=== PATIENT | female | born 1995 | race Caucasian/White ===

== ENCOUNTER 2016-06-25 12:10 | Outpatient (CLI) | payer BC ==
[2016-06-25 13:16] LABS: #Basophils 0.1 thou/uL (0.0-0.2); #Eosinphils 0.1 thou/uL (0.0-0.7); #Lymphocytes 2.1 thou/uL (1.20-3.40); #Monocytes 0.4 thou/uL (0.11-0.59); #Neutrophils 2.1 thou/uL (1.40-6.50); %Basophils 2.5 % (0.0-1.0); %Eosinophils 1.8 % (0.0-10.0); %Lymphocytes 43.5 % (28.0-48.0); %Monocytes 8.5 % (0.0-4.0); %Neutrophils 43.7 % (31.0-61.0); Hemoglobin 14.7 g/dL (12.0-16.0); Mean Corpuscular HGB CONC 33.6 g/dL (32.0-36.0); Mean Corpuscular Hemoglobin 30.6 pg (25.0-35.0); Mean Corpuscular Volume 91.1 fl (77.0-87.0); Platelet Count 228 thou/uL (130-400); RBC Distribution Width 11.1 % (11.5-14.5); White Blood Cell (WBC) Count 4.9 thou/uL (4.8-10.8)
[2016-06-25 13:17] LABS: Hemoglobin A1c 4.9 % (4.0-6.0)
[2016-06-25 13:18] LABS: ALT (SGPT) 27 U/L (0-55); AST (SGOT) 19 U/L (5-30); Albumin 4.2 g/dL (3.5-5.0); Alkaline Phosphatase 38 U/L (40-150); Anion Gap 10 mmol/L (10-20); BUN (Urea Nitrogen) 11 mg/dL (8.4-21.0); Bilirubin, Total 0.3 mg/dL (0.2-1.2); Calc. Creatinine Clearance 0 mL/min (70-130); Calcium 9.3 mg/dL (7.8-10.44); Carbon Dioxide 28 mmol/L (22-29); Chloride 106 mmol/L (98-107); Estimated GFR-MDRD Greater than 90; Globulin 2.9 g/dL (2.4-3.5); Glucose 92 mg/dL (70-105); Potassium 4.1 mmol/L (3.5-5.1); Protein, Total 7.1 g/dL (6.0-8.3); Sodium 140 mmol/L (136-145)
[2016-06-25 13:30] LABS: Free T4 (Free Thyroxine) 0.89 ng/dL (0.70-1.48); Thyroid Stimulating Hormone 0.6924 uIU/mL (0.35-4.94)
[2016-06-25 17:28] LABS: Iron 78 ug/dL (50-170)
[2016-06-25 17:49] LABS: Ferritin 34.08 ng/mL (10-291)
== END 2016-06-25 12:11 | disposition home or self-care (01) ==
LOC: MADLABBHPM 12:10
PROVIDERS: ATTEND Family Medicine
DX: R53.82 Chronic fatigue, unspecified (principal); N92.6 Irregular menstruation, unspecified; R68.89 Other general symptoms and signs; K21.9 Gastro-esophageal reflux disease without esophagitis
CPT/HCPCS: 36415; 80053; 82728; 83036; 83540; 84439; 84443; 85025; 86677

== ENCOUNTER 2016-07-10 22:05 | Emergency (ER) | payer BC ==
[2016-07-10] MEDS ORDERED: HYDROcodone/Acetaminophen 10/325 mg Tablet ONE (23:11)
[2016-07-10] MEDS ORDERED: Naproxen 500 MG TAB ONE (23:12)
[2016-07-10] MEDS ORDERED: Ondansetron ODT 4 MG TAB ONE (23:12)
--- NOTE | 2016-07-10 23:33 | RAD ---
FRONTAL AND LATERAL IMAGING OF THE THORACIC SPINE 07/10/16 COMPARISON: None. HISTORY: Trauma. FINDINGS: Thoracic vertebral body height and alignment appears within normal limits. The thoracic pedicles colby ear intact. IMPRESSION: No acute findings. POS: [facility]
--- NOTE | 2016-07-10 23:35 | RAD ---
TWO VIEWS OF THE LUMBAR SPINE 07/10/16 COMPARISON: None. HISTORY: Trauma, pain. FINDINGS: Umbilical ornamentation overlies the L4-5 level on frontal imaging. Lumbar pedicles appear intact on frontal imaging. Lateral imaging demonstrates normal vertebral body height and alignment with no ev idence for fracture. IMPRESSION: No acute findings. POS: [facility]
--- NOTE | 2016-07-10 23:36 | CT ---
HEAD CT WITHOUT CONTRAST: 07/10/16 COMPARISON: 01/26/15 HISTORY: Trauma, pain. TECHNIQUE: Serial axial CT imaging at 5 mm intervals from vertex through skull base without contrast. Coronal a nd sagittal reformatted imaging obtained. FINDINGS: The imaged paranasal sinuses and mastoid air cells are well aerated. No displaced calvarial fracture, intracranial hemorrhage, midline shift, or mass effect. IMPRESSION: No acute findings. POS: [facility]
--- NOTE | 2016-07-10 23:48 | CT ---
CT CERVICAL SPINE 07/10/16 COMPARISON: 01/26/15 HISTORY: Trauma, pain. TECHNIQUE: Serial axial CT imaging at 2.5 mm intervals from skull base through lung apices without contrast. Co amanuel and sagittal reformatted imaging obtained. FINDINGS: C1 ring is intact. Craniocervical junction and atlantoaxial interspace appear intact. The occipital condyles, the dense , and the C1-2 articulation appear within normal limits. The cervicothoracic junction is intact. Cer vical vertebral body height and alignment is within normal limits aside from straightening of the no rmal cervical lordosis, likely on the basis of positioning. No prevertebral soft tissue swelling, fr acture, or dislocation. Imaged lung apices appear unremarkable. IMPRESSION: No acute findings. POS: [facility]
== END 2016-07-11 00:21 | disposition home or self-care (01) ==
LOC: MADERS 22:05
DX: T07 Unspecified multiple injuries (principal); V89.2XXA Person injured in unspecified motor-vehicle accident, traffic, initial encounter
CPT/HCPCS: 70450; 72072; 72100; 72125; Q0162

== ENCOUNTER 2016-07-21 12:35 | Emergency (ER) | payer BC ==
[2016-07-21 13:33] LABS: Pregnancy Test - Urine (BHCG) NEGATIVE (NEGATIVE); Pregu Control Background? CLEAR/WHITE (CLR/WHITE); Pregu Control Bar Appear? YES (CONTROL BAR); Specific Gravity 1.015 (1.002-1.036)
== END 2016-07-21 13:53 | disposition home or self-care (01) ==
LOC: MADERS 12:35
DX: M54.5 Low back pain (principal); N80.9 Endometriosis, unspecified
CPT/HCPCS: 81025; 99283

== ENCOUNTER 2020-01-10 11:45 | Emergency (ER) | payer BC, OTHER, SELFPAY ==
[2020-01-10 12:13] LABS: Pregnancy Test - Urine (BHCG) Negative (Negative); Pregu Control Background? CLEAR/WHITE (CLR/WHITE); Pregu Control Bar Appear? YES (CONTROL BAR); Specific Gravity 1.025 (1.002-1.036)
[2020-01-10 12:17] LABS: Bilirubin Negative (Negative); Blood, Urine Trace (Negative); Clarity Clear (Clear); Glucose, Urine (Dipstick) Negative (Negative); Ketone, Urine Trace mg/dL (Negative); Leukocyte Small (Negative); Nitrite Negative (Negative); Protein, Urine (Dipstick) Negative (Neg-Trace); Specific Gravity, Urine 1.025 (1.005-1.030); Urobilinogen 0.2 mg/dL (Less than 2); pH, Urine 6.5 (5.0-9.0)
[2020-01-10 12:29] LABS: Bacteria/HPF 1+ HPF (None Seen); Mucous/LPF 1+ LPF (<2+); RBC/HPF 0-3 HPF (0-3); WBC/HPF 0-3 HPF (0-3)
[2020-01-11 13:24] LABS: SARS-CoV-2 MS2 Positive; SARS-CoV-2 N Gene Negative; SARS-CoV-2 S Gene Negative; SARS-CoV-2 by NAA Not Detected (NotDetected); SARS-CoV-2 orf1ab Negative
== END 2020-01-10 12:50 | disposition home or self-care (01) ==
LOC: MADERS 11:45
DX: J06.9 Acute upper respiratory infection, unspecified (principal); Z20.828 Contact with and (suspected) exposure to other viral communicable diseases
CPT/HCPCS: 81003; 81015; 81025; 87086; 87635; 99283; U0003

== ENCOUNTER 2021-01-01 10:28 | Emergency (ER) | payer MEDICAID, SELFPAY | END 2021-01-01 12:41 | disposition left against medical advice (07) | LOC: MADERS 10:28 | DX: Z53.21 Procedure and treatment not carried out due to patient leaving prior to being seen by health care provider (principal) ==